=== PATIENT | male | born 1950 | race Caucasian/White ===

== ENCOUNTER 2021-01-11 08:49 | Inpatient (IN) | payer MEDICARE, OTHER ==
[~2021-01-11] VITALS: Ht 198.1 cm; Wt 137.5 kg
[2021-01-11] MEDS ORDERED: SODIUM CHLORIDE 0.9% 1000ML 1,000 ML IV STA ×2 (09:05→11:27)
[2021-01-11] MEDS ORDERED: VANCOMYCIN 1GM/NS 250 ML 250 ML IV ONE (09:15)
[2021-01-11] MEDS ORDERED: PIPERACILLIN/TAZOBAC 3.375 GM in SODIUM CHLORIDE 0.9% 50ML 50 ML IV ONE (09:15)
[2021-01-11 09:28] LABS: BASOPHILS % 0.3 % (0.0-1.0); EOSINOPHILS % 0.2 % (0.0-6.0); HEMATOCRIT 40.3 % (38.2-49.6); HEMOGLOBIN 13.6 g/dL (14.0-18.0); LYMPHOCYTES # (AUTO) 0.7 (1.0-3.2); LYMPHOCYTES % 5.4 % (18.0-39.1); MEAN CORPUSCULAR HEMOGLOBIN 32.8 pg (28-32); MEAN CORPUSCULAR HGB CONC 33.7 g/dL (31-35); MEAN CORPUSCULAR VOLUME 97.1 fL (81-99); MONOCYTES % 8.2 % (4.4-11.3); NEUTROPHILS # (AUTO) 10.4 (2.1-6.9); NEUTROPHILS % 85.4 % (38.7-80.0); PLATELET COUNT 246 x10e3/uL (140-360); RED BLOOD COUNT 4.15 x10e6/uL (4.3-5.7); RED CELL DISTRIBUTION WIDTH 13.3 % (11.7-14.4)
[2021-01-11 10:37] LABS: INR 1.05; PARTIAL THROMBOPLASTIN TIME 32.1 seconds (23.8-35.5); PROTHROMBIN TIME 14.3 seconds (11.9-14.5)
[2021-01-11 10:41] LABS: ALANINE AMINOTRANSFERASE 29 IU/L (0-55); ALBUMIN 4.1 g/dL (3.5-5.0); ALBUMIN/GLOBULIN RATIO 1.2 (0.8-2.0); ALKALINE PHOSPHATASE 68 IU/L (40-150); ANION GAP 17.3 mmol/L (8-16); BLOOD UREA NITROGEN 16 mg/dL (7-26); BUN/CREATININE RATIO 14 (6-25); CARBON DIOXIDE 24 mmol/L (22-29); CHLORIDE 102 mmol/L (98-107); CREATINE KINASE 251 IU/L (30-200); CREATININE, SERUM 1.12 mg/dL (0.72-1.25); EST GLOMERULAR FILTRATION RATE > 60 ML/MIN (60-); GLUCOSE 213 mg/dL (74-118); MAGNESIUM 1.6 MG/DL (1.3-2.1); POTASSIUM 4.3 mmol/L (3.5-5.1); SODIUM 139 mmol/L (136-145)
[2021-01-11 10:43] LABS: B-TYPE NATRIURETIC PEPTIDE2 39.2 pg/mL (0-100)
[2021-01-11] MEDS ORDERED: SODIUM CHLORIDE 0.9% IV ONE (11:30)
[2021-01-11] MEDS ORDERED: ONDANSETRON HCL INJ 2MG/ML 2ML 2 MG/ML VIAL IV PRN (12:00)
[2021-01-11 13:44] LABS: CLARITY,URINE CLEAR (CLEAR); COLOR,URINE YELLOW (YELLOW); KETONES,URINE 1+ (NEGATIVE); LEUKOCYTE ESTERASE ,URINE NEGATIVE (NEGATIVE); NITRITE,URINE NEGATIVE (NEGATIVE); PROTEIN,URINE DIPSTICK TRACE (NEGATIVE)
[2021-01-11 13:45] LABS: URINE UROBILINOGEN 1 mg/dL (0.2 - 1)
[2021-01-11 14:00] VITALS: BP 159/78
[2021-01-11 14:00] LABS: BACTERIA,URINE FEW /HPF; EPITHELIAL CELLS,URINE RARE /LPF; WBC,URINE (MAN) 0-5 /HPF (0-5)
[2021-01-11] MEDS ORDERED: TRAMADOL HCL 50 MG TAB PO PRN (14:00)
[2021-01-11] MEDS ORDERED: CEFTRIAXONE SOD 1 GM/50 ML BAG IV SCH (14:00)
[2021-01-11] MEDS ORDERED: HYDRALAZINE HCL 20 MG/ML VIAL IV PRN (14:00)
[2021-01-11 14:02] VITALS: BP 159/78
[2021-01-11] MEDS: SODIUM CHLORIDE 0.9% 1000ML 1,000 ML IV SCH (14:20)
[2021-01-11] MEDS ORDERED: CEFTRIAXONE SOD 1 GM in SODIUM CHLORIDE 0.9% 50ML 50 ML IV SCH (15:00)
[2021-01-11] MEDS ORDERED: DEXTROSE 50% SYRINGE 50 ML IV PRN (15:00)
[2021-01-11] MEDS ORDERED: OMEPRAZOLE20 MG PO (15:22)
[2021-01-11] MEDS ORDERED: GABAPENTIN300 MG PO (15:22)
[2021-01-11] MEDS ORDERED: METFORMIN HCL1000 MG PO (15:22)
[2021-01-11] MEDS ORDERED: LISINOPRIL10 MG PO (15:22)
[2021-01-11] MEDS ORDERED: ISOSORBIDE MONO30 MG PO (15:22)
[2021-01-11] MEDS ORDERED: SIMVASTATIN20 MG PO (15:22)
[2021-01-11] MEDS ORDERED: MONTELUKAST SOD10 MG PO (15:22)
[2021-01-11 16:10] VITALS: BP 160/88
[2021-01-11 16:41] VITALS: BP 160/88
[2021-01-11] MEDS: ACETAMINOPHEN 325 MG TAB PO PRN (17:19)
[2021-01-11] MEDS: FAMOTIDINE 20 MG TAB PO SCH (17:19)
[2021-01-11] MEDS: INSULIN LISPRO 100 UNIT/1 ML 3ML VIAL SQ SCH ×2 (17:25→21:00)
[2021-01-11] MEDS ORDERED: LORAZEPAM INJ 2 MG/ML VIAL IV STA (17:53)
[2021-01-11] MEDS ORDERED: IOPAMIDOL 370 MG/ML 200 ML INFUS..BTL INJ ONE (18:59)
[2021-01-11] MEDS ORDERED: SODIUM CHLORIDE 0.9% 100 ML ONE (18:59)
[2021-01-11 19:52] VITALS: BP 141/75
[2021-01-11 21:00] VITALS: BP 141/75
[2021-01-11] MEDS ORDERED: MELATONIN 5 MG TABLET PO PRN (21:00)
[2021-01-11] MEDS ORDERED: IBUPROFEN 400 MG TAB PO PRN (21:45)
[2021-01-12 00:01] VITALS: BP 131/80
[2021-01-12] MEDS: SODIUM CHLORIDE 0.9% 1000ML 1,000 ML IV SCH ×2 (02:00→10:38)
[2021-01-12] MEDS: ACETAMINOPHEN 325 MG TAB PO PRN (04:30)
[2021-01-12 05:34] VITALS: BP 149/80
[2021-01-12 05:36] LABS: BASOPHILS # (AUTO) 0.1 (0.0-0.1); BASOPHILS % 0.5 % (0.0-1.0); EOSINOPHILS % 0.3 % (0.0-6.0); HEMATOCRIT 38.1 % (38.2-49.6); LYMPHOCYTES # (AUTO) 0.7 (1.0-3.2); LYMPHOCYTES % 6.6 % (18.0-39.1); MEAN CORPUSCULAR HEMOGLOBIN 32.7 pg (28-32); MEAN CORPUSCULAR HGB CONC 34.1 g/dL (31-35); MONOCYTES # (AUTO) 0.7 (0.2-0.8); MONOCYTES % 6.5 % (4.4-11.3); NEUTROPHILS # (AUTO) 9.4 (2.1-6.9); NEUTROPHILS % 85.6 % (38.7-80.0); PLATELET COUNT 203 x10e3/uL (140-360); RED BLOOD COUNT 3.97 x10e6/uL (4.3-5.7); RED CELL DISTRIBUTION WIDTH 13.1 % (11.7-14.4)
[2021-01-12 05:54] LABS: ALANINE AMINOTRANSFERASE 24 IU/L (0-55); ALBUMIN 3.3 g/dL (3.5-5.0); ALBUMIN/GLOBULIN RATIO 0.9 (0.8-2.0); ALKALINE PHOSPHATASE 55 IU/L (40-150); ANION GAP 17.8 mmol/L (8-16); BLOOD UREA NITROGEN 12 mg/dL (7-26); BUN/CREATININE RATIO 13 (6-25); CARBON DIOXIDE 21 mmol/L (22-29); CHLORIDE 103 mmol/L (98-107); CHOL/HDL RATIO 3.4 (3.9-4.7); CHOLESTEROL 137 MD/DL (0-199); CREATININE, SERUM 0.93 mg/dL (0.72-1.25); EST GLOMERULAR FILTRATION RATE > 60 ML/MIN (60-); GLUCOSE 210 mg/dL (74-118); HDL CHOLESTEROL 40 MG/DL (40-60); LDL CHOLESTEROL 68 MG/DL (60-130); POTASSIUM 3.8 mmol/L (3.5-5.1); SODIUM 138 mmol/L (136-145); TRIGLYCERIDES 147 MG/DL (0-149)
[2021-01-12 06:22] LABS: CREATINE KINASE MB 1.8 ng/mL (0-5.0)
[2021-01-12] MEDS: INSULIN LISPRO 100 UNIT/1 ML 3ML VIAL SQ SCH ×2 (07:30→11:30)
[2021-01-12 07:39] VITALS: BP 114/74
[2021-01-12] MEDS ORDERED: CEFDINIR300 MG PO (08:26)
[2021-01-12] MEDS ORDERED: MECLIZINE HCL12.5 MG PO (08:26)
[2021-01-12 08:41] VITALS: BP 114/74
[2021-01-12] MEDS ORDERED: LISINOPRIL 10 MG TAB PO SCH (09:00)
[2021-01-12] MEDS ORDERED: PANTOPRAZOLE SOD 40 MG TABEC PO SCH ×2 (09:00)
[2021-01-12] MEDS ORDERED: ISOSORBIDE MONONITRATE 30 MG TAB CR PO SCH (09:00)
[2021-01-12] MEDS ORDERED: MONTELUKAST SODIUM 10 MG TAB PO SCH (09:00)
[2021-01-12] MEDS ORDERED: SIMVASTATIN 20 MG TAB PO SCH (09:00)
[2021-01-12] MEDS ORDERED: GABAPENTIN 300 MG CAP PO SCH (09:00)
[2021-01-12] MEDS: FAMOTIDINE 20 MG TAB PO SCH (09:01)
[2021-01-12 11:20] VITALS: BP 137/76
[2021-01-12] MEDS ORDERED: ONDANSETRON HCL 4 MG ORAL DISINTEGRATING TAB PO PRN (12:45)
[2021-01-12 16:17] VITALS: BP 135/83
== END 2021-01-12 16:33 | disposition home or self-care (01) | DRG 862 ==
LOC: ER 09:43 → ERHOLD 12:16 → MED/SURG2 14:00
PROVIDERS: ADMIT Internal Medicine; ATTEND Internal Medicine
DX: T81.49XA Infection following a procedure, other surgical site, initial encounter (principal); R65.20 Severe sepsis without septic shock; A41.9 Sepsis, unspecified organism; I44.7 Left bundle-branch block, unspecified; E11.9 Type 2 diabetes mellitus without complications; E78.5 Hyperlipidemia, unspecified; Z20.822 Contact with and (suspected) exposure to COVID-19; L03.031 Cellulitis of right toe; R42 Dizziness and giddiness; S20.419A Abrasion of unspecified back wall of thorax, initial encounter; W19.XXXA Unspecified fall, initial encounter
CPT/HCPCS: 36415; 70450; 70496; 70498; 71045; 72125; 80053; 80061; 81001; 82550; 82553; 82948; 83036; 83605; 83735; 83880; 84484; 85025; 85610; 85730; 87040; 87071; 87086; 87186; 87205; 93005; 93306; 93880; 97139; 99284; J0696; J2060; J2543; J3370; J7030; J7050; Q9967; U0002